=== PATIENT | male | born 1965 | race Two or more races ===

== ENCOUNTER 2018-08-14 15:58 | Inpatient (IN) | payer SELFPAY ==
[~2018-08-14] VITALS: Ht 165.1 cm; Wt 85.4 kg
--- NOTE | 2018-08-14 16:05 | NUR ---
ED Nurse Note: ERMD at bedside performing US.
[2018-08-14 16:10] VITALS: BP 125/80
--- NOTE | 2018-08-14 16:11 | NUR ---
ED Nurse Note: Patient, homeless, brought in to ER by ambulance from street c/o both flanks pain 10/10 which radiates to lower back. pt aao x4 and ambulatory with weak gait. per pt, he has h/o kidney stone and UTI and he is suspecting that is what is happening. pt denied N/V/D. pt has had pain about 4 days. talkative but cooperative.
[2018-08-14 16:23] LABS: APPEARANCE,URINE CLEAR; BILIRUBIN, URINE NEGATIVE (NEGATIVE); GLUCOSE, URINE (UA) NEGATIVE (NEGATIVE); KETONES,URINE 2+ (NEGATIVE); LEUKOCYTE ESTERASE ,URINE 1+ (NEGATIVE); NITRITE,URINE NEGATIVE (NEGATIVE); PH,URINE 5 (4.5-8.0); PROTEIN,URINE 3+ (NEGATIVE); UROBILINOGEN,URINE NORMAL MG/DL (0.0-1.0)
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
[2018-08-14 16:29] LABS: COLOR,URINE YELLOW
[2018-08-14] MEDS ORDERED: cefTRIAXone 1 GM in NS 55 ML IVPB ONE (16:45)
[2018-08-14 16:52] LABS: HEMATOCRIT 40.8 % (42.0-52.0); HEMOGLOBIN 14.8 G/DL (14.2-18.0); LYMPHOCYTES % (AUTO) 7.5 % (20.0-45.0); MEAN CORPUSCULAR VOLUME 88 FL (80-99); MONOCYTES % (AUTO) 9.9 % (1.0-10.0); NEUTROPHILS % (AUTO) 81.5 % (45.0-75.0); PLATELET COUNT 234 K/UL (150-450); RED BLOOD COUNT 4.61 M/UL (4.70-6.10); RED CELL DISTRIBUTION WIDTH 11.6 % (11.6-14.8); WHITE BLOOD COUNT 15.2 K/UL (4.8-10.8)
[2018-08-14 16:55] LABS: INR 1.1 (0.9-1.1)
[2018-08-14 16:58] LABS: ANION GAP 13 mmol/L (5-15); BLOOD UREA NITROGEN 51 mg/dL (7-18); CALCIUM 9.6 MG/DL (8.5-10.1); CARBON DIOXIDE 25 MMOL/L (21-32); CHLORIDE 104 MMOL/L (98-107); CREATININE 1.6 MG/DL (0.55-1.30); POTASSIUM 4.2 MMOL/L (3.5-5.1); SODIUM 142 MMOL/L (136-145)
--- NOTE | 2018-08-14 17:00 | NUR ---
ED Nurse Note: Pt drank 2 bottles of water and getting NS bolus but still HR is between 120/min to 140/min. reported to ERMD and received verbal order to provide sandwich and drink. sandwich and juice were provided and pt finished them.
[2018-08-14 17:09] LABS: ALANINE AMINOTRANSFERASE 115 U/L (12-78); ALBUMIN/GLOBULIN RATIO 0.9 (1.0-2.7); ALKALINE PHOSPHATASE 88 U/L (46-116); ASPARTATE AMINO TRANSFERASE 355 U/L (15-37); BILIRUBIN,TOTAL 2.3 MG/DL (0.2-1.0)
[2018-08-14 17:10] LABS: BILIRUBIN,DIRECT 0.4 MG/DL (0.0-0.3)
--- NOTE | 2018-08-14 18:00 | NUR ---
ED Nurse Note: Patient started getting confused as calling people's name who are not here. pt still redirectable and follows commands. no signs of physical aggression noted at this time.
[2018-08-14 18:10] VITALS: BP 134/71
[2018-08-14] MEDS ORDERED: LORazepam Inj 2mg/ml 1ml IV ONE (18:15)
[2018-08-14] MEDS ORDERED: UNOBMED (18:30)
--- NOTE | 2018-08-14 18:31 | Diagnostic Imaging Report ---
EXAM: CT Abdomen and Pelvis Without Intravenous Contrast CLINICAL HISTORY: ABD PAIN TECHNIQUE: Axial computed tomography images of the abdomen and pelvis without intravenous contrast. CTDI is 17.20 mGy and DLP is 944 mGy-cm. One or more of the following dose reduction techniques were used: automated exposure control, adjustment of the mA and/or kV according to patient size, use of iterative reconstruction technique. COMPARISON: none FINDINGS: Lung bases: Unremarkable. No mass. No consolidation. ABDOMEN: Liver: Unremarkable. Gallbladder and bile ducts: Cholelithiasis. No ductal dilation. Pancreas: Unremarkable. No ductal dilation. Spleen: Unremarkable. No splenomegaly. Adrenals: Unremarkable. No mass. Kidneys and ureters: Bilateral extrarenal pelves with mild, grade 1 right hydronephrosis. Stomach and bowel: Diverticulosis. No obstruction. No mucosal thickening. PELVIS: Appendix: No findings to suggest acute appendicitis. Bladder: Marked urinary bladder distention, urinary bladder measuring 18 cm craniocaudal, beyond the level of the umbilicus. No stones. Reproductive: The prostate is not enlarged ABDOMEN and PELVIS: Intraperitoneal space: Unremarkable. No free air. No significant fluid collection. Bones/joints: L2 anterior wedge compression fracture with superior and inferior endplate large Schmorl's nodes and mild generalized sclerosis. No dislocation. Soft tissues: Unremarkable. Vasculature: Unremarkable. No abdominal aortic aneurysm. Lymph nodes: Unremarkable. No enlarged lymph nodes. IMPRESSION: 1. CT findings suggesting urinary retention with possible reflux up the ureters. No evidence of urinary tract radiopaque stone disease or prostatomegaly. Consider urologic follow-up. Otherwise no acute findings in the abdomen or pelvis on noncontrast abdomen pelvis CT. 2. Sclerosis and anterior wedge compression fracture at L2 could be posttraumatic. Correlate with clinical history. A pathologic fracture is considered less likely but has not yet been confidently excluded. <MYCVCSECTION> Critical Value Communications 08/14/18 18:50 Verify Receipt Verified receipt with Dr. Llanos on 08/14 18:50 (-07:00) 08/14/18 18:52 Call From [facility] Dr. Llanos on 08/14 18:49 (-07:00)
--- NOTE | 2018-08-14 18:37 | NUR ---
Note kathy in EDM - 08/15/18 at 0726 by [email or web address] ED Nurse Note: pt urinated 120cc in urinal, dark finn. post void urine was checked at 999cc. Received verbal order to insert FC.
--- NOTE | 2018-08-14 18:37 | NUR ---
ED Nurse Note: pt urinated 1200cc in urinal, dark finn. post void urine was checked at 999cc. Received verbal order to insert FC.
[2018-08-14] MEDS ORDERED: Gadavist 7.5mMol/7.5ml vial IV PRN (19:00)
--- NOTE | 2018-08-14 19:01 | NUR ---
X-ray notified of L spine MRI to call a tech in.
--- NOTE | 2018-08-14 19:18 | NUR ---
HAND-OFF: Report given to AURELIANO Vences. no order to carry at this moment. swabs done. will need to send them to lab after admitting doctor assigned.
--- NOTE | 2018-08-14 19:29 | NUR ---
ED Nurse Note: Patient is resting. When receiving report, patient exhibited signs of desaturation due to position. Patient repositioned, ERMD at bedside.
[2018-08-14 19:31] VITALS: BP 104/60
--- NOTE | 2018-08-14 20:35 | NUR ---
ED Nurse Note: Patient completed CT of [facility] head and is now going for an MRI of the spine.
--- NOTE | 2018-08-14 21:21 | Diagnostic Imaging Report ---
EXAM: CT Head Without Intravenous Contrast CLINICAL HISTORY: PAIN TECHNIQUE: Axial computed tomography images of the head/brain without intravenous contrast. CTDI is 70.53 mGy and DLP is 1526 mGy-cm. One or more of the following dose reduction techniques were used: automated exposure control, adjustment of the mA and/or kV according to patient size, use of iterative reconstruction technique. COMPARISON: none FINDINGS: Brain: No findings suggestive of acute infarct. Mineralization of the bilateral globus pallidi is incidentally noted. No hemorrhage. No significant white matter disease. Ventricles: Unremarkable. No ventriculomegaly. Bones/joints: Unremarkable. No acute fracture. Soft tissues: Unremarkable. Vasculature: Intracranial atherosclerosis is present with multiple segments of density in the major intracranial vessels favored to represent atherosclerotic calcifications rather than occlusive thrombus. Sinuses: Unremarkable as visualized. No acute sinusitis. Mastoid air cells: Unremarkable as visualized. No mastoid effusion. IMPRESSION: No acute intracranial pathology.
[2018-08-14 21:58] VITALS: BP 117/75
--- NOTE | 2018-08-14 22:01 | NUR ---
ED Nurse Note: Patient is sleeping, post return from MRI. No s/s of acute distress, vital signs stable, patient still tachycardic at 107. Will continue to monitor.
[2018-08-14] MEDS ORDERED: Vancomycin 1.5gm Premix 275 ML IVPB ONE (22:15)
[2018-08-14] MEDS ORDERED: Vancomycin 1.5gm vial IVPB ONE (22:20)
[2018-08-14] MEDS ORDERED: Vancomycin 1.5 GM in NS 275 ML IVPB ONE (22:30)
--- NOTE | 2018-08-14 22:51 | NUR ---
ED Nurse Note: Report called in to Rufino BEDOYA. Patient is still running on IV vanco, slowly, not to exceed an hour.
[2018-08-14 23:00] VITALS: BP 115/72
--- NOTE | 2018-08-14 23:28 | NUR ---
NURSE NOTES: Received report from AURELIANO Vences and received patient via gurney from AURELIANO Stewart. Patient in bed asleep showing no signs of acute distress. VS BP - 115/72, HR 104, T 98.4, O2 sat 96%. Respiration even and non labored. IV vanco still running. refractory tile helper showing SR. Bed in lowest position, wheels locked, and alarm on. Call light within reach. Called and left a message to Dr. Heredia for admission order. Awaiting call back.
--- NOTE | 2018-08-14 23:38 | NUR ---
NURSE NOTES: Received admission orders from Dr. Estevez. Noted and carried out
[2018-08-14] MEDS ORDERED: DiphenhydrAMINE 50mg/ml Inj IVP PRN (23:45)
[2018-08-14] MEDS ORDERED: Morphine Sulfate 2mg/ml Inj(IV/IM USE ONLY) IVP PRN (23:45)
[2018-08-15 04:00] VITALS: BP 115/73
[2018-08-15 06:20] LABS: EOSINOPHILS % (AUTO) 0.6 % (0.0-3.0); HEMATOCRIT 39.2 % (42.0-52.0); HEMOGLOBIN 13.3 G/DL (14.2-18.0); LYMPHOCYTES % (AUTO) 12.7 % (20.0-45.0); MEAN CORPUSCULAR VOLUME 93 FL (80-99); MONOCYTES % (AUTO) 9.2 % (1.0-10.0); NEUTROPHILS % (AUTO) 76.5 % (45.0-75.0); PLATELET COUNT 210 K/UL (150-450); WHITE BLOOD COUNT 8.6 K/UL (4.8-10.8)
[2018-08-15 06:29] LABS: ANION GAP 9 mmol/L (5-15); BLOOD UREA NITROGEN 34 mg/dL (7-18); CALCIUM 8.8 MG/DL (8.5-10.1); CARBON DIOXIDE 27 MMOL/L (21-32); CHLORIDE 108 MMOL/L (98-107); CREATININE 0.9 MG/DL (0.55-1.30); POTASSIUM 3.5 MMOL/L (3.5-5.1); SODIUM 144 MMOL/L (136-145)
--- NOTE | 2018-08-15 07:37 | NUR ---
HAND-OFF: Report given to AURELIANO Cummings.
--- NOTE | 2018-08-15 07:59 | NUR ---
NURSE NOTES: Received report from AURELIANO Joy. Patient in bed resting, no active s/s cardiac, respiratory distress noticed at this time. Patient on room air, ST with HR 102, denies pain at this time. IV on left hand 20G, asymptomatic, patent, intact. Ahn Catheter draining well to gravity. Bed in lowest position, side rails upx3, call light within reach. Will continue to monitor.
[2018-08-15 08:00] VITALS: BP 145/102
[2018-08-15] MEDS: Heparin 5000 units/ml inj SUBQ SCH ×2 (09:22→20:55)
--- NOTE | 2018-08-15 09:51 | History & Physical ---
History and Physical History & Physicial History and Physical HPI Patient is a 52-year-old male presented after increased low back pain. Patient reports of increased pain to the right flank. He states he had recently been diagnosed with a urinary tract infection as well as a sexual transmitted disease. Patient states he had recently been treated with oral antibiotics for approximately 10 days after being diagnosed with an STD in [facility]. He does not know the names of the antibiotics however he stated he took several doses of oral medications. He reports having increased dysuria. Patient states he last used crystal meth approximately 5 days ago. He reports drinking alcohol daily. He states he does not drink excessively and usually only has 2 beers per day. Patient denies any vomiting or bleeding. He denies any chest discomfort. Noted to have Urinary Retention Allergies: No Known Allergies Past Medical History: Hypertension, previous STD All Other Systems: negative except mentioned in HPI Physical Exam Vital Signs Noted General Appearance: normal inspection, well appearing, no apparent distress, alert, GCS 15 Head: other - left supraorbital swelling ENT: normal ENT inspection, hearing grossly normal, normal pharynx, normal voice Neck: normal inspection, full range of motion, supple, no bony tend Respiratory: normal inspection, lungs clear, normal breath sounds, no respiratory distress, no retraction, no wheezing Cardiovascular: HS1, HS2, RRR, no edema Gastrointestinal: normal inspection, normal bowel sounds, non tender, soft, no guarding, no hernia Rectal: normal rectal tone Genitourinary: no CVA tenderness Musculoskeletal: normal inspection, back normal, normal range of motion Neurologic: normal inspection, alert, oriented x3, responsive, 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
--- NOTE | 2018-08-15 10:06 | NUR ---
NURSE NOTES: Per Dr. Estevez, amlodipine 5mg daily PO, hydralazine 25mg PO PRN q6h for sbp >180, lumbar spine CT. Order noted, entered, carried out.
[2018-08-15] MEDS ORDERED: Isovue-300 100ml vial INJ PRN (10:15)
[2018-08-15] MEDS ORDERED: HydrALAZINE 25mg tab ORAL PRN (10:15)
--- NOTE | 2018-08-15 10:56 | NUR ---
CASE MANAGEMENT: INITIAL REVIEW 08/14/2018 52 YO M ERIC FROM STREET C/O BACK PAIN PMHx: HTN. SI:UTI. TACHYCARDIA. T 98.2 HR 76 RR 22 B/P 125/80 SATS 98% ON RA WBC 15.2 BUN 51 CR 1.6 GLU 114 TBILI 2.3 DBILI 0.4 AST 335 ALT 115 UTOX (+METH) IS: ZOFRAN IV X1 PEPCID IV X1 NS BOLUS X1 ROCEPHIN IV X1 ATIVAN IV X1 PATIENT ADMITTED TO TELE 08/14/2018 @ 5429 DCP: PATIENT TO BE DISCHARGED TO HOME ONCE MEDICALLY CLEARED. PLAN OF CARE: CT L SPINE SSW CONSULT Addendum: 08/15/18 at 1104 by Pau Escalante 08/15/2018 SI:UTI. TACHYCARDIA. T 99 HR 102 RR 17 B/P 115/73 SATS 96% ON RA WBC 8.6 CL 108 BUN 34 IS:NORVASC PO QD IVF @ 50 mL/HR VANCO IV Q24H CEFTRIAXONE IV Q24H DCP: PATIENT TO BE DISCHARGED TO APPROPRIATE LOCATION PLAN OF CARE: IV ANTIBX
[2018-08-15 12:00] VITALS: BP 132/89
[2018-08-15 16:00] VITALS: BP 139/97
[2018-08-15] MEDS: cefTRIAXone 1gm/D5W 55ml IVPB SCH ×2 (16:23)
--- NOTE | 2018-08-15 19:14 | NUR ---
HAND-OFF: Report given to AURELIANO Heltno.
--- NOTE | 2018-08-15 19:16 | NUR ---
NURSE NOTES: Received bedside report from AURELIANO Cummings.Patient stable,in a bed,no c/o pain,no respiratory distress noted,A&Ox3-4,ST on child monitor,N/C with 2L/min tolerated well,f/cath 16Fr for retention,draining well toward gravity,BS active in all quadrants, IV asymptomatic,intact on R hand 22G running with NS @ 50ml/hr,bed secured in a low safety position,call light within a reach,will continue to monitor and follow POC.
[2018-08-15 20:00] VITALS: BP 143/99
[2018-08-15] MEDS: Vancomycin 1.5gm Premix 275 ML IVPB SCH (20:55)
[2018-08-16] VITALS: BP 135/84
[2018-08-16 04:07] VITALS: BP 124/65
--- NOTE | 2018-08-16 07:06 | NUR ---
HAND-OFF: Report given to AURELIANO Cummings.Patient stable,eating breakfast.
--- NOTE | 2018-08-16 07:13 | NUR ---
NURSE NOTES: Received report from AURELIANO Helton. Patient in bed resting, eating breakfast, no active s/s cardiac, respiratory distress noticed at this time, denies pain at this time. Patient on room air. IV on left hand 22G, asymptomatic, patent, intact. Ahn Catheter draining well to gravity. Bed in lowest position, side rails upx2, call light within reach. Will continue to monitor.
[2018-08-16 08:00] VITALS: BP 136/90
--- NOTE | 2018-08-16 08:20 | General Progress Note ---
Assessment/Plan Assessment/Plan: Urinary Retention Urinary Tract Infection Evidence of L2 vertebral fracture Methamphetamine abuse PLAN uro evaluation antibiotics supportive care pain control Subjective Allergies: Coded Allergies: No Known Allergies (Unverified , 08/14/18) Subjective care noted Objective Last 24 Hour Vital Signs Date Time Temp Pulse Resp B/P (MAP) Pulse Ox O2 Delivery O2 Flow Rate FiO2 08/16/18 04:07 97.8 79 18 124/65 (84) 08/16/18 03:44 85 08/16/18 00:11 101 08/16/18 00:00 98.6 95 20 135/84 (101) 98 08/15/18 21:00 Room Air 08/15/18 20:00 99.5 110 20 143/99 (114) 99 08/15/18 19:44 106 08/15/18 16:00 121 08/15/18 16:00 98.8 118 20 139/97 (111) 95 08/15/18 12:00 98.5 122 18 132/89 (103) 94 08/15/18 11:58 141 08/15/18 11:39 113 145/102 08/15/18 09:00 Room Air Intake and Output 08/15/18 08/16/18 19:00 07:00 Intake Total 680 ml 475.0 ml Output Total 1200 ml 600 ml Balance -520 ml -125.0 ml Intake Oral 680 ml 200 ml IV Total 275.0 ml Output Urine Total 1200 ml 600 ml Height (Feet): 5 Height (Inches): 5.00 Weight (Pounds): 172 Objective WDWN NAD clear breath sounds bilaterally without rhonchi or wheeze [id number] without MRG NABS nontender no HSM no CCE nonfocal Keon Heredia MD August 16, 2018 08:20
[2018-08-16] MEDS: Heparin 5000 units/ml inj SUBQ SCH ×2 (08:21→21:17)
--- NOTE | 2018-08-16 08:28 | NUR ---
CASE MANAGEMENT:REVIEW 08/16/18 SI: METHAMPHETAMINE ABUSE UTI. VERTEBRAL FRACTURE 98.6 101 20 135/84 98% ON RA IS: IV VANCOMYCIN Q24HRS IV ROCEPHIN Q24 NORVASC PO QD HEPARIN SQ Q12 : TELEMETRY STATUS PLAN: SUPPORTIVE CARE
--- NOTE | 2018-08-16 11:30 | NUR ---
NURSE NOTES: Dr. Heredia made aware of L2 vertebral fracture, no further order given at this time. Will continue to monitor.
[2018-08-16 12:00] VITALS: BP 102/60
--- NOTE | 2018-08-16 12:41 | NUR ---
Social Service Note RODNEY met with patient to assess for homelessness. Patient is alert, oriented and verbally responsive. Patient states he was released from senior living on August 11 and placed at [facility]. RODNEY located program and confirmed patient was residing there for a short period of time, [address] [place] [address], . RODNEY left a message for tool programmer Ayla to determine if patient can return to program. Patient states he went to visit his girlfriend, had a few drinks and didn't return to the program. Patient denies current drug use. RODNEY informed patient he has a positive drug screen for amphetamines. Patient adamantly denies drug use. Patient states he will be drug test by his [employer] [facility] and if positive will be reincarnated. Due to patient's incarnation patient states his medi-maryam has been placed on hold along with his GR/Food stamps. Patient states he is aware of the [facility] office to meet with a case work to reinstate benefits. Patient also ask SW to contact the [facility] [phone] regarding placement through [facility]. RODNEY spoke with Andre who states they only receive referrals through [facility]. RODNEY informed patient who requested to call program himself, number provided. RODNEY contacted [facility] ([facility]) [phone]. [facility] RODNEY confirmed that program can provide assessment and assistance [facility]. Patient can go to [address] [place] [address], M-F 9am and request an assessment with [employer] english faculty member. RODNEY provided patient information. Patient states his emergency contact is his sister Karyn Ferreira [phone]. Patient states sister shows support occasionally but is reluctant due to extensive drug history. Patient states he will make some phone calls to determine placement upon discharge. Community care clinic list to be provided to patient for follow up medical if required. Medi-maryam EW will screen patient for assistance in reinstatement of medi-maryam. Patient denies mental health diagnosis. Will continue to monitor and follow up. RODNEY discussed with Dr. Heredia.
--- NOTE | 2018-08-16 14:54 | NUR ---
P.T NOTE: P.T EVALUATION COMPLETED. PATIENT IS ALERT, O X 4, PLEASANT AND COOPERATIVE. PATIENT REPORTS C/O PAIN IN THE LOWER BACK RATED 3/10 WITH MOBILITY. PATIENT IS INDEPENDENT WITH ADL/FUNCTIONAL MOBILITY AND GAIT/AMBULATION ACTIVITIES W/O AD. BASED ON P.T EVALUATION, PATIENT IS BASELINE INDEPENDENT WITH FUNCTIONAL MOBILITIES. CURRENT FUNCTIONAL STATUS DOES NOT REQUIRE SKILLED P.T SERVICES. THANK YOU FOR THIS REFERRAL. [place] P.T SERVICES.
[2018-08-16 16:00] VITALS: BP 108/75
[2018-08-16] MEDS: cefTRIAXone 1gm/D5W 55ml IVPB SCH ×2 (16:04)
[2018-08-16] MEDS ORDERED: NS 275ml ONE (16:08)
--- NOTE | 2018-08-16 19:20 | NUR ---
HAND-OFF: Report given to AURELIANO Kan.
--- NOTE | 2018-08-16 19:23 | NUR ---
NURSE NOTES: Report received from AURELIANO Cummings. Observed pt sitting on the chair. A/O x4, denies any pain at this time. ST with HR of 103 noted on ekg monitor. On room air with no signs of SOB. IV on L H 22G. Bed in the lowest position. Side rails up x2. Call light within reach. Will continue to monitor.
[2018-08-16 20:00] VITALS: BP 154/95
[2018-08-16] MEDS: Tamsulosin 0.4mg cap ORAL SCH (21:16)
[2018-08-16] MEDS: Vancomycin 1.5gm Premix 275 ML IVPB SCH (21:16)
--- NOTE | 2018-08-16 22:47 | NUR ---
NURSE NOTES: Observed pt lying on the bed, watching television. Denies any pain at this time. No signs of acute distress noted at this time. Bed in the lowest position. Side rails up x3. Call light within reach. Will continue to monitor.
[2018-08-17] VITALS: BP 132/91
[2018-08-17 04:00] VITALS: BP 145/90
--- NOTE | 2018-08-17 07:30 | NUR ---
HAND-OFF: Report given to AURELIANO Taylor. No acute distress noted at this time.
[2018-08-17 08:00] VITALS: BP 135/96
--- NOTE | 2018-08-17 08:22 | NUR ---
NURSE NOTES: Pt in bed in low position, pt has bathroom privileges, call light at bedside, pt has finch catheter in place, night monitor in place, pt Ox4, calm and cooperative, pt denies paid, IV site intact and asymptomatic, no s/s of distress or sob noted.
[2018-08-17] MEDS: Heparin 5000 units/ml inj SUBQ SCH ×2 (09:47→20:05)
--- NOTE | 2018-08-17 10:56 | General Progress Note ---
Assessment/Plan Assessment/Plan: Urinary Retention Urinary Tract Infection Evidence of L2 vertebral fracture Methamphetamine abuse PLAN voiding trial antibiotics and flomax supportive care dc and follow up with primary clinic Subjective Allergies: Coded Allergies: No Known Allergies (Unverified , 08/14/18) Subjective care noted ready for dc Objective Last 24 Hour Vital Signs Date Time Temp Pulse Resp B/P (MAP) Pulse Ox O2 Delivery O2 Flow Rate FiO2 08/17/18 09:45 77 135/96 08/17/18 08:17 Room Air 08/17/18 08:00 97.5 77 20 135/96 (109) 96 08/17/18 07:48 89 08/17/18 04:00 98.0 89 20 145/90 (108) 97 08/17/18 04:00 74 08/17/18 00:00 98.0 87 20 132/91 (105) 96 08/17/18 00:00 84 08/16/18 21:00 Room Air 08/16/18 20:00 94 08/16/18 20:00 98.2 88 20 154/95 (114) 96 08/16/18 16:00 98.6 94 20 108/75 (86) 94 08/16/18 16:00 94 08/16/18 12:00 97.7 101 20 102/60 (74) 98 08/16/18 12:00 97 Intake and Output 08/16/18 08/17/18 19:00 07:00 Intake Total 360 ml 240 ml Output Total 1000 ml 800 ml Balance -640 ml -560 ml Intake Oral 360 ml 240 ml Output Urine Total 1000 ml 800 ml Height (Feet): 5 Height (Inches): 5.00 Weight (Pounds): 172 Objective WDWN NAD clear breath sounds bilaterally without rhonchi or wheeze [id number] without MRG NABS nontender no HSM no CCE nonfocal Keon Heredia MD August 17, 2018 10:56
--- NOTE | 2018-08-17 11:20 | NUR ---
HOMELESS COORDINATOR HC spoke with patient and patient is alert and oriented. Patient does not have a contact number. Patient states he uses a walker but was not at his bedside.Patient currently has no income. Patient states he is not using any drugs and denies and history of mental health disorders. Patient tested positive for amphetamine. Patient was recently released from custodial and placed in housing at The [address] [id number] . Patient was placed in housing through [facility] program (probation placement). HC spoke with [facility] about Patient returning back upon discharge. Cristhian from [facility] states the patient is unable to return back to housing because patient is not taking treatment serious. Cristhian states patient left after one day. Cristhian states patient answered the phone during a meeting and rushed to leave with girlfriend after being told not to. Cristhian states patient must wait 30 days before returning back to housing. Patient states he will become chronically homeless if he can not return to housing. Patient also states he can live with sister, (Karyn Ferreira) but doesn't want to be a bother. HC has referred patient to [facility] and is waiting to hear back about placement. spoke with patient and he states he has chlamydia and syphilis. HC provide std treatment clinic and also a follow-up appointment @ [address] [place] [address], August @ 1pm. Patient also requested a pair of shoes, 04/07. Patient continues to require medical intervention. Will continue to monitor and assist as needed. Addendum: 08/17/18 at 1649 by ARIANNE RUSHING CM HC spoke with [facility], and they have decided to accept the patient tomorrow 08/18/18 after phone interview and requested documents to be faxed. [facility] is requesting a chest x-ray, H&P, and prescriptions to be faxed along with medi-maryam info. is waiting for chest x-ray to be completed before faxing results. Patients medi-maryam is suspended but has requested medi-maryam to be reinstated. HC spoke with [facility] to update them on the medi-maryam status and to see if they are still willing to accept patient due to him being apart of the [facility] program. HC will speak to [facility] tomorrow 08/18/18 to follow up and fax requested docs after chest x-ray has been completed. Patient continues to require medical intervention. Will continue to monitor and assist as needed. Addendum: 08/18/18 at 1505 by ARIANNE RUSHING CM HC spoke with [facility] and [facility] will be accepting Patient today, before 17:00. Please provide taxi voucher to patient to [facility] [address], [place] [address] ([phone] Addendum: 08/18/18 at 1540 by ARIANNE RUSHING has been speaking with Laila from [facility] At 13:00 today Laila confirmed she will be accepting the patient today.
[2018-08-17 12:00] VITALS: BP 115/68
--- NOTE | 2018-08-17 12:25 | NUR ---
CASE MANAGEMENT:REVIEW 08/17/18 SI: METHAMPHETAMINE ABUSE UTI. VERTEBRAL FRACTURE 97.5 77 20 135/96 96% on ra IS: IV VANCOMYCIN Q24HRS IV ROCEPHIN Q24 NORVASC PO QD HEPARIN SQ Q12 : TELEMETRY STATUS PLAN: SUPPORTIVE CARE
[2018-08-17 16:00] VITALS: BP 127/92
[2018-08-17] MEDS: cefTRIAXone 1gm/D5W 55ml IVPB SCH ×2 (16:50)
[2018-08-17] MEDS ORDERED: SODIUM CHLORIDE IV ONE (17:00)
[2018-08-17] MEDS ORDERED: AZITHROMYCIN IV ONE (17:00)
--- NOTE | 2018-08-17 19:00 | NUR ---
NURSE NOTES: Pt has prescription on chart for Cipro and flomax, pt also to recieve Doxycyline for discharge tomorrow.
--- NOTE | 2018-08-17 19:10 | NUR ---
NURSE NOTES: Received report from Everett RN, pt. in bed awake, A/O x's4- able to make needs known, no signs or symptoms of acute cardiac or respiratory distress noted, bed in lowest position and call light within easy reach, bed alarm on, side rails up x's3 and safety brakes engaged, pt. appears to be sating well on room air at 99%- no distress noted, pt. is clean and dry, all needs attended to, pt. has left hand 22G IV intact and patent, safety measures continue, will continue with plan of care.
--- NOTE | 2018-08-17 19:32 | NUR ---
HAND-OFF: Report given to Jamar Pelaez .
[2018-08-17 20:00] VITALS: BP 135/85
[2018-08-17] MEDS: Tamsulosin 0.4mg cap ORAL SCH (20:16)
[2018-08-17] MEDS: Vancomycin 1.25gm Premix IVPB SCH (22:15)
[2018-08-18] VITALS: BP 135/88
[2018-08-18] MEDS ORDERED: Tamsulosin 0.4mg cap ORAL SCH
[2018-08-18] MEDS ORDERED: Ciprofloxacin 500mg tab ORAL SCH
--- NOTE | 2018-08-18 07:24 | NUR ---
HAND-OFF: Report given to Basil RN,pt. remains stable and no signs of distress noted.
--- NOTE | 2018-08-18 08:00 | NUR ---
NURSE NOTES: Pt awake/alert in bed, breathing easily on room air, denies SOB and denies pain at this time, Lungs clear bilaterally. Vital signs stable with SR @ 96 on monitor. IV access right hand flushed with 10 ml NS and locked. Bed left in low position, side rails up x 2 and call light left near pt's hand.
[2018-08-18 08:34] VITALS: BP 135/88
[2018-08-18] MEDS: Heparin 5000 units/ml inj SUBQ SCH (08:37)
[2018-08-18] MEDS: Vancomycin 1.25gm Premix IVPB SCH (10:15)
--- NOTE | 2018-08-18 13:53 | Diagnostic Imaging Report ---
Indication: Dyspnea Comparison: None A single view chest radiograph was obtained. Findings: Cardiomediastinal appearance is within normal limits for age. No pleural or parenchymal calcifications are identified. The lungs are clear. Pulmonary vascularity is appropriate. The diaphragmatic contour is smooth and costophrenic angles are sharp. No pleural effusions are identified. The bones are unremarkable. Impression: Negative evaluation
--- NOTE | 2018-08-18 14:41 | Pulmonology Progress Note ---
Assessment/Plan Assessment/Plan Pulmonary Progress Note Assessment/Plan: Urinary Retention Urinary Tract Infection Evidence of L2 vertebral fracture Methamphetamine abuse PLAN voiding trial antibiotics and flomax supportive care dc and follow up with primary clinic Subjective Allergies: Coded Allergies: No Known Allergies (Unverified , 08/14/18) Subjective care noted ready for dc Objective Vital Signs Noted Height (Feet): 5 Height (Inches): 5.00 Weight (Pounds): 172 Objective WDWN NAD clear breath sounds bilaterally without rhonchi or wheeze [id number] without MRG NABS nontender no HSM no CCE nonfocal Subjective ROS Limited/Unobtainable: No Allergies: Coded Allergies: No Known Allergies (Unverified , 08/14/18) Objective Last 24 Hour Vital Signs Date Time Temp Pulse Resp B/P (MAP) Pulse Ox O2 Delivery O2 Flow Rate FiO2 08/18/18 08:34 98 135/88 08/18/18 08:00 87 08/18/18 04:00 98 08/18/18 00:00 83 08/18/18 00:00 97.5 80 19 135/88 (104) 98 08/17/18 21:00 Room Air 08/17/18 20:00 80 08/17/18 20:00 97.7 81 19 135/85 (102) 98 08/17/18 16:17 74 08/17/18 16:00 97.8 69 20 127/92 (104) 96 Intake and Output 08/17/18 08/18/18 19:00 07:00 Intake Total 140 ml 366.666 ml Output Total 2000 ml Balance 140 ml -1633.334 ml Intake Oral 140 ml IV Total 366.666 ml Output Urine Total 2000 ml # Voids 4 # Bowel Movements 1 Laboratory Tests 08/17/18 20:44: Vancomycin Level Trough 3.3L Current Medications Medications (Trade) Dose Ordered Sig/Kaley Route PRN Reason Start Time Stop Time Status Last Admin Dose Admin Acetaminophen (Tylenol) 650 mg Q6H PRN ORAL Mild Pain/Temp > 101 08/14/18 23:45 09/13/18 23:44 08/15/18 13:44 Amlodipine Besylate (Norvasc) 5 mg DAILY ORAL 08/15/18 10:15 09/14/18 10:14 08/18/18 08:34 Ceftriaxone Sodium 1 gm/ Dextrose 55 ml @ 110 mls/hr Q24H IVPB 08/15/18 16:30 08/22/18 16:29 08/17/18 16:50 Ciprofloxacin (Cipro 500mg tab) 500 mg BID ORAL 08/18/18 00:00 08/22/18 23:59 Diphenhydramine HCl (Benadryl) 25 mg Q6H PRN IVP Itching 08/14/18 23:45 09/13/18 23:44 Gadobutrol (Gadavist) 7.5 mmol NOW PRN IV Radiology Procedure 08/14/18 19:00 08/18/18 18:59 Heparin Sodium (Porcine) (Heparin 5000 units/ml) 5,000 units EVERY 12 HOURS SUBQ 08/15/18 09:00 09/14/18 08:59 08/18/18 08:37 Hydralazine HCl (Apresoline) 25 mg Q6H PRN ORAL SBP > 180mmHg 08/15/18 10:15 09/14/18 10:14 Morphine Sulfate (Morphine Sulfate) 1 mg Q6H PRN IVP For Pain 08/14/18 23:45 08/21/18 23:44 08/15/18 18:46 Ondansetron HCl (Zofran) 4 mg Q8H PRN IVP Nausea & Vomiting 08/14/18 23:45 09/13/18 23:44 Tamsulosin HCl (Flomax) 0.4 mg BEDTIME ORAL 08/18/18 00:00 08/20/18 23:59 Tamsulosin HCl (Flomax) 0.8 mg BEDTIME ORAL 08/16/18 21:00 09/15/18 20:59 08/17/18 20:16 Vancomycin HCl (Vanco rx to dose) 1 ea DAILY PRN MISC INFECTION 08/15/18 00:15 09/14/18 00:14 Vancomycin HCl/ Dextrose 275 ml @ 183.333 mls/hr Q12HR@1000,2200 IVPB 08/17/18 22:00 08/22/18 21:59 08/18/18 10:15 Rowdy Estevez MD August 18, 2018 14:41
--- NOTE | 2018-08-18 17:03 | NUR ---
NURSE NOTES: Pt awake/alert taken via wheel chair to hospital entrance for discharge to [facility] with a [employer] voucher. Pt given ABX for 5 days and flomax for 3 nights along with instructions for taking them. Pt given follow up appt. for a public health clinic on [facility] in [place]. IV access and finch catheter d/c and pt able to void. Pt left with all his possessions and a urinal due to the quantity of water he drank post finch and the taxi drive in [place] hour traffic.
--- NOTE | 2018-08-19 13:11 | Discharge Summary ---
Discharge Summary Discharge Summary _ DATE OF ADMISSION: 08/14/2018 DATE OF DISCHARGE: 08/18/2018 DISCHARGED BY: Dr. Margarito Heredia [facility]: The patient is a 52-year-old male, who presented to ED after increased low back pain. The patient reported increased pain to the right flank. He stated he had recently been diagnosed with a urinary tract infection as well as sexual transmitted disease. The patient stated he was recently treated with oral antibiotics for 10 days after being diagnosed with STD in skilled nursing. He could not recall the names of the antibiotics, however, he stated that he took several doses of oral medications. He reported increased dysuria. Patient stated he last used crystal meth 5 days prior. He reported drinking alcohol daily. He stated does not drink excessively and usually only 2 beers per day. He denied any vomiting or bleeding. He denies any chest discomfort. On evaluation at the ED, blood pressure was stable, although he was noted to be tachycardic with a heart rate of 130. Blood work did not show any leukocytosis. Hemoglobin and hematocrit were stable. Electrolytes were normal. Troponin was negative. Urine toxicology screen was positive for amphetamine. He was started on IV fluids. He was noted to have elevated postvoid residual although he was able to void on his own slightly. A Ahn catheter was inserted. It drained approximately 1200 cc of dark urine. He was also given Ativan due to recent drug use. CT of the head read by radiologist showed no evidence of acute intracranial hemorrhage or CVA. CT of the abdomen and pelvis showed findings suggestive of urinary retention and possible reflux up the ureters. There was a sclerosis and anterior wedge compression fracture at L2. MRI of the lumbar spine was reported by ED physician to show urinary retention and evidence of L2 fracture. Was no evidence of cord compression or epidural abscess. He was started on IV antibiotics. He was admitted for evaluation of urinary retention, urinary tract infection, evidence of L2 vertebral fracture and methamphetamine use. He was given supportive care. He was continued on IV ceftriaxone. He was placed on heparin for DVT prophylaxis. He was started on Flomax. He was started on voiding trials. He was given physical therapy evaluation. Patient was independent with ADLs and functional mobility and gait/ambulation activities. Chest x-ray was negative. Social service was consulted to aid with placement. Patient was accepted back to [facility]. He was eventually discharged. FINAL DIAGNOSES: Urinary retention Urinary tract infection Evidence of L2 vertebral fracture Methamphetamine abuse DISPOSITION: Patient was discharged back to detention. DISCHARGE INSTRUCTIONS: Follow-up with primary clinic in a week. I have been assigned to complete a discharge summary on this account, I was not involved with the patient's management. Bel Ferrari NP August 19, 2018 13:11
== END 2018-08-18 17:08 | disposition home or self-care (01) | DRG 690 ==
LOC: EDBD 15:58 → EMR 16:19 → 2E 19:08 → EDBEDREQ 22:35
DX: N39.0 Urinary tract infection, site not specified (principal); S32.029A Unspecified fracture of second lumbar vertebra, initial encounter for closed fracture; R33.9 Retention of urine, unspecified; X58.XXXA Exposure to other specified factors, initial encounter; F15.10 Other stimulant abuse, uncomplicated
CPT/HCPCS: 36415; 70450; 71045; 72131; 72158; 74176; 80048; 80053; 80202; 80307; 81003; 82248; 82962; 83690; 84484; 85025; 85610; 85730; 87081; 93005; 96361; 96365; 96368; 96375; 99285; A9585; J2405